=== PATIENT | female | born 1985 | race Caucasian/White ===

== ENCOUNTER 2019-10-05 15:39 | Emergency (ER) | payer OTHER ==
[~2019-10-05] VITALS: Ht 165.1 cm; Wt 90.7 kg
[2019-10-05 15:59] VITALS: BP 130/84
--- NOTE | 2019-10-05 16:07 | NUR ---
C/O DRY COUGH/ LOSS OF TASTE/ LOSS OF SMELL X5 DAYS, PT STATES SHE WAS EXPOSED TO COVID 2 WEEKS AGO BY A CO WORKER. DENIES ANY SOB/ CHEST PAIN/ FEVER. NO DISTRESS NOTED AT THIS TIME. VSS. RESP EVEN AND UNLABORED. DENIES ANY N/V/D NO PMH NKA
[2019-10-05 16:41] VITALS: BP 130/84
--- NOTE | 2019-10-05 16:41 | NUR ---
Patient discharged with v/s stable. Written and verbal after care instructions given and explained. Patient verbalized understanding. Ambulatory with steady gait. All questions addressed prior to discharge. Advised to follow up with PMD.
--- NOTE | 2019-10-07 13:19 | NUR ---
Covid results received from lab. Results = NOT DETECTED. Hard copy requested from lab and placed in infection controls mailbox.
== END 2019-10-05 16:41 | disposition home or self-care (01) ==
LOC: MED 15:39
DX: R43.8 Other disturbances of smell and taste (principal); Z20.828 Contact with and (suspected) exposure to other viral communicable diseases; R05 Cough; R51 Headache
CPT/HCPCS: 99283; U0003

== ENCOUNTER 2020-08-14 17:16 | Emergency (ER) | payer OTHER ==
[~2020-08-14] VITALS: Ht 165.1 cm; Wt 95.3 kg
[2020-08-14 17:26] VITALS: BP 116/82
[2020-08-14] MEDS ORDERED: ONDANSETRON 4 MG/2 ML VIAL IVP ONE (17:30)
[2020-08-14] MEDS ORDERED: ACETAMINOPHEN EXTRA STRENGTH 500 MG TAB PO ONE (17:30)
[2020-08-14] MEDS ORDERED: NACL 0.9% 1,000 ML IV ONE (17:30)
--- NOTE | 2020-08-14 17:50 | NUR ---
LAB DRAWING BLOOD AT THIS TIME.
--- NOTE | 2020-08-14 17:56 | NUR ---
35 y/o female c/o nausea/vomiting today. Reports 6/10 sharp abdominal pain. denies any recent fever, cough, runny nose. no medications taken. no other members of household with same symptoms. abd soft non tender, lung sounds clear. pmh: kidney stones, gallbladder removal nka
--- NOTE | 2020-08-14 17:56 | NUR ---
PT W/C ASSISTED TO BED 08
[2020-08-14 18:02] LABS: BASOPHILS % (AUTO) 0.3 % (0.0-2.0); EOSINOPHILS # (AUTO) 0.1 K/uL (0-0.4); EOSINOPHILS % (AUTO) 0.7 % (0.0-4.0); HEMATOCRIT 39.3 % (36-48); HEMOGLOBIN 13.6 g/dL (12.0-16.0); LYMPHOCYTES # (AUTO) 1.5 K/uL (2.5-16.5); LYMPHOCYTES % (AUTO) 17.1 % (20.5-51.1); MEAN CORPUSCULAR HEMOGLOBIN 35 pg (27-31); MEAN CORPUSCULAR HGB CONC 35 g/dL (33-37); MEAN CORPUSCULAR VOLUME 100.4 fL (80-94); MONOCYTES # (AUTO) 0.5 K/uL (0.8-1.0); MONOCYTES % (AUTO) 5.9 % (1.7-9.3); NEUTROPHILS # (AUTO) 6.5 K/uL (1.8-7.7); PLATELET COUNT (AUTO) 312 K/uL (140-450); RED BLOOD CELL COUNT(AUTO) 3.92 MIL/uL (4.20-5.40); RED CELL DISTRIBUTION WIDTH 12.2 % (11.6-13.7); WHITE BLOOD COUNT (AUTO) 8.5 K/uL (4.8-10.8)
[2020-08-14 18:16] LABS: ALBUMIN 4.3 g/dL (3.4-5.0); ANION GAP 10.4 (8-16); CARBON DIOXIDE 27.5 mmol/L (21-32); CREATININE 0.7 mg/dL (0.6-1.3); POTASSIUM 3.9 mmol/L (3.5-5.1); TOTAL BILIRUBIN 0.3 mg/dL (0.0-1.0)
[2020-08-14 18:19] LABS: APPEARANCE,URINE CLEAR (CLEAR); BILIRUBIN,URINE NEGATIVE (NEGATIVE); BLOOD, URINE NEGATIVE (NEGATIVE); COLOR,URINE YELLOW (YELLOW); LEUKOCYTE ESTERASE ,URINE NEGATIVE (NEGATIVE); NITRITE, URINE NEGATIVE (NEGATIVE); UGLUCOSE NEGATIVE (NEGATIVE)
[2020-08-14] MEDS ORDERED: ONDA-24 SL (19:05)
[2020-08-14 19:17] VITALS: BP 116/82
== END 2020-08-14 19:18 | disposition home or self-care (01) ==
LOC: MED 17:16
DX: R11.2 Nausea with vomiting, unspecified (principal); Z79.899 Other long term (current) drug therapy
CPT/HCPCS: 36415; 80053; 81003; 81025; 84703; 85025; 96361; 96374; 99283; J2405; J7030

== ENCOUNTER 2020-08-22 18:14 | Emergency (ER) | payer OTHER ==
[~2020-08-22] VITALS: Ht 165.1 cm; Wt 95.3 kg
[~2020-08-22 18:14] MED LIST: ONDA-24 SL
[2020-08-22 18:41] VITALS: BP 139/93
--- NOTE | 2020-08-22 20:00 | NUR ---
C/O VAGINAL BLEDING, RIGHT LOWER BACK, RLQ ABD PAIN X TODAY. SEEN HERE FOR N/V 08/14/20. A7OX4. SKIN IS WNL. ABD IS TENDERNESS TO TOUCH ON BILAT LOWER QUADS. PT STATES, "THERES HEAVY BLACK COLOR DISCHARGE COMING OUT AND IT HAS A FOUL ODOR." PT DENIES ANY BLOOD CLOTS. DENIES ANY VAGINAL PAIN OR ITICHINESS. 07/20 PAIN AND DESCRIBES IT STABBING AND PRESSURE. PT ADMITS TO HAVING UNPROTECTED SEX WITH BF. +SEXAULLY ACTIVE. VSS. A&OX4. NKDA. PMH: MERARI KIDNEY STONES
--- NOTE | 2020-08-22 20:01 | NUR ---
PT ATTACHED TO GRAVE DIGGER. SIDE RAILS UP X2. BED LOCKED IN PLACE AND AT THE LOWEST POSITION.
--- NOTE | 2020-08-22 20:24 | NUR ---
HANYD EMORYO AT BEDSIDE EVALUATING PT.
--- NOTE | 2020-08-22 20:40 | NUR ---
PELVIC EXAM SET UP AT BEDSIDE.
--- NOTE | 2020-08-22 21:20 | NUR ---
VAGINAL CULTURE COLLECTED AND SENT TO LAB.
[2020-08-22] MEDS ORDERED: cefTRIAXone 2,000 MG in DEXTROSE 5% 100 ML IV ONE (21:25)
[2020-08-22] MEDS ORDERED: cefTRIAXone 2,000 MG VIAL ONE (21:32)
[2020-08-22 21:36] LABS: BASOPHILS % (AUTO) 0.5 % (0.0-2.0); EOSINOPHILS # (AUTO) 0.1 K/uL (0-0.4); EOSINOPHILS % (AUTO) 1.2 % (0.0-4.0); HEMATOCRIT 37.6 % (36-48); HEMOGLOBIN 12.8 g/dL (12.0-16.0); LYMPHOCYTES # (AUTO) 3.6 K/uL (2.5-16.5); LYMPHOCYTES % (AUTO) 41.5 % (20.5-51.1); MEAN CORPUSCULAR HEMOGLOBIN 35 pg (27-31); MEAN CORPUSCULAR HGB CONC 34 g/dL (33-37); MEAN CORPUSCULAR VOLUME 101.2 fL (80-94); MONOCYTES # (AUTO) 0.5 K/uL (0.8-1.0); MONOCYTES % (AUTO) 6.1 % (1.7-9.3); NEUTROPHILS # (AUTO) 4.4 K/uL (1.8-7.7); NEUTROPHILS % (AUTO) 50.7 % (42.2-75.2); PLATELET COUNT (AUTO) 300 K/uL (140-450); RED BLOOD CELL COUNT(AUTO) 3.72 MIL/uL (4.20-5.40); RED CELL DISTRIBUTION WIDTH 12.6 % (11.6-13.7); WHITE BLOOD COUNT (AUTO) 8.6 K/uL (4.8-10.8)
[2020-08-22 21:52] LABS: ALBUMIN 4.1 g/dL (3.4-5.0); ANION GAP 11.6 (8-16); CARBON DIOXIDE 27.4 mmol/L (21-32); CREATININE 0.7 mg/dL (0.6-1.3); TOTAL BILIRUBIN 0.2 mg/dL (0.0-1.0)
[2020-08-22] MEDS ORDERED: DOXY-487 PO (22:24)
[2020-08-22] MEDS ORDERED: DOXY50CA5 PO (22:25)
[2020-08-22] MEDS ORDERED: DOXY100C9 PO (22:29)
[2020-08-22] MEDS ORDERED: METR500T1 PO (22:29)
[2020-08-22] MEDS ORDERED: FLUC150T PO (22:30)
[2020-08-22 22:45] VITALS: BP 98/59
--- NOTE | 2020-08-22 22:45 | NUR ---
Patient discharged with v/s stable. Written and verbal after care instructions given and explained. Patient alert, oriented and verbalized understanding of instructions. Ambulatory with steady gait. All questions addressed prior to discharge. ID band removed. Patient advised to follow up with PMD. Rx of DOXCYCLINE, FLAGYL, DIFULCAN given. Patient educated on indication of medication including possible reaction and side effects. Opportunity to ask questions provided and answered.
--- NOTE | 2020-08-22 22:45 | NUR ---
ERMD MADE AWARE OF PTS VS PRIOR TO S/C. OKAY TO D/C PT PER MD.
--- NOTE | 2020-08-24 05:45 | NUR ---
LATE ENTRY- ROCEPHIN IVPB DISCONTINUED AT 2210
== END 2020-08-22 22:45 | disposition home or self-care (01) ==
LOC: MED 18:14
DX: N76.0 Acute vaginitis (principal); F12.90 Cannabis use, unspecified, uncomplicated; Z97.5 Presence of (intrauterine) contraceptive device; Z79.899 Other long term (current) drug therapy; Z87.442 Personal history of urinary calculi; Z98.890 Other specified postprocedural states
CPT/HCPCS: 36415; 80053; 81002; 81025; 83605; 85025; 87070; 96365; 99284; J0696; 87075

== ENCOUNTER 2020-10-19 08:30 | Emergency (ER) | payer OTHER ==
[~2020-10-19] VITALS: Ht 162.6 cm; Wt 102.3 kg
[~2020-10-19 08:30] MED LIST changes: +FLUC150T PO; +METR500T1 PO; +VIB100 PO
[2020-10-19 08:49] VITALS: BP 138/105
--- NOTE | 2020-10-19 09:17 | NUR ---
PT AMBULATED TO BED 8
[2020-10-19] MEDS ORDERED: KETOROLAC 60 MG/2 ML VIAL IM ONE (09:25)
[2020-10-19] MEDS ORDERED: ACET-8386 PO (09:31)
[2020-10-19] MEDS ORDERED: OMEP40EC24 PO (09:31)
[2020-10-19] MEDS ORDERED: IBUP-2213 PO (09:31)
--- NOTE | 2020-10-19 09:47 | NUR ---
35/F presents to ED with c/o left flank pain x1 week. Patient states she has been having worsening intermittent left flank pain, stating 8/10 sharp pain. Reports taking motrin with no relief, states pain is nonradiating and worsening today. Denies N/V/D, dysuria, hematuria, fever, chills, chest pain or sob.
[2020-10-19] MEDS ORDERED: DICYCLOMINE HCL LIQUID 20 MG, ALUMINUM HYD/MAG/SIMETHICONE 30 ML, LIDOCAINE VISCOUS 2% ... PO ONE ×3 (10:05)
[2020-10-19] MEDS ORDERED: DICYCLOMINE HCL LIQUID 10 MG/5 ML UDC ONE (10:08)
[2020-10-19] MEDS ORDERED: ALUMINUM HYD/MAG/SIMETHICONE 30 ML UDC ONE (10:08)
[2020-10-19 10:47] VITALS: BP 138/105
--- NOTE | 2020-10-19 10:48 | NUR ---
Patient discharged with v/s stable. Written and verbal after care instructions given and explained. Patient alert, oriented and verbalized understanding of instructions. Ambulatory with steady gait. All questions addressed prior to discharge. ID band removed. Patient advised to follow up with PMD. Rx of IBUPROFEN, NORCO 5-325 AND PRILOSEC given. Patient educated on indication of medication including possible reaction and side effects. EDUCATED ON USE OF NARCOTICS AND TO AVOID DRINKING/DRIVING WHILE USING. Opportunity to ask questions provided and answered.
== END 2020-10-19 10:48 | disposition home or self-care (01) ==
LOC: MED 08:30
DX: R10.32 Left lower quadrant pain (principal)
CPT/HCPCS: 81002; 81025; 96372; 99283; J1885

== ENCOUNTER 2020-10-22 07:16 | Emergency (ER) | payer OTHER ==
[~2020-10-22] VITALS: Ht 162.6 cm; Wt 102.1 kg
[~2020-10-22 07:16] MED LIST changes: +ACET-8386 PO; -FLUC150T PO; +IBUP-2213 PO; -METR500T1 PO; +OMEP40EC24 PO; -ONDA-24 SL; -VIB100 PO
[2020-10-22 07:30] VITALS: BP 135/77
[2020-10-22] MEDS ORDERED: ONDANSETRON 4 MG ODT PO ONE (07:30)
[2020-10-22] MEDS ORDERED: HYDROcodone/APAP 5/325 MG 1 TAB TAB PO ONE ×2 (07:30→09:30)
--- NOTE | 2020-10-22 07:35 | NUR ---
PT PLACED BACK INTO LOBBY POST TRIAGE
--- NOTE | 2020-10-22 07:43 | NUR ---
URINE COLLECTED AND PLACED IN TRIAGE BIN NEAR SINK.
--- NOTE | 2020-10-22 07:43 | NUR ---
35 Y/O F BIB SELF FROM HOME, PT STATES SHE WOKE UP THIS MORNING IN WORSENING PAIN IN HER ABD LLQ, DOES NOT RADIATE. ALSO C/O N&V THIS MORNING. STATES SHE WAS SEEN HERE IN ER ON FRIDAY, NO BLOOD WORK OR TESTING, WAS TOLD "I JUST HAVE KIDNEY STONES". PAIN HAS INCREASED SINCE S/S ON FRIDAY. SKIN IS PINK/WARM/DRY; AAOX4 WITH EVEN AND STEADY GAIT; LUNGS CLEAR BL; HR EVEN AND REGULAR; PT DENIES ANY FEVER, CP, SOB, OR COUGH AT THIS TIME; PATIENT STATES PAIN OF 9/10 AT THIS TIME; VSS; PATIENT POSITIONED FOR COMFORT; HOB ELEVATED; BEDRAILS UP X2; BED DOWN. ER MD MADE AWARE OF PT STATUS. PMH: KIDNEY STONES, KIDNEY INFECTION NKA MED: IBUPROFEN 600MG
--- NOTE | 2020-10-22 08:08 | NUR ---
LABS COLLECTED, TOOK BLOOD AND URINE TO [facility]SAF IN LAB.
--- NOTE | 2020-10-22 08:08 | NUR ---
Patient taken for CT scan via wheelchair
[2020-10-22 08:15] LABS: BASOPHILS % (AUTO) 0.5 % (0.0-2.0); EOSINOPHILS # (AUTO) 0.1 K/uL (0-0.4); EOSINOPHILS % (AUTO) 2.2 % (0.0-4.0); HEMATOCRIT 40.4 % (36-48); HEMOGLOBIN 13.7 g/dL (12.0-16.0); LYMPHOCYTES # (AUTO) 2.2 K/uL (2.5-16.5); LYMPHOCYTES % (AUTO) 32.1 % (20.5-51.1); MEAN CORPUSCULAR HEMOGLOBIN 34 pg (27-31); MEAN CORPUSCULAR HGB CONC 34 g/dL (33-37); MONOCYTES # (AUTO) 0.6 K/uL (0.8-1.0); MONOCYTES % (AUTO) 9.3 % (1.7-9.3); NEUTROPHILS # (AUTO) 3.7 K/uL (1.8-7.7); NEUTROPHILS % (AUTO) 55.9 % (42.2-75.2); PLATELET COUNT (AUTO) 303 K/uL (140-450); WHITE BLOOD COUNT (AUTO) 6.7 K/uL (4.8-10.8)
[2020-10-22 08:19] LABS: BILIRUBIN,URINE NEGATIVE (NEGATIVE); BLOOD, URINE 1+ (NEGATIVE); COLOR,URINE YELLOW (YELLOW); LEUKOCYTE ESTERASE ,URINE NEGATIVE (NEGATIVE); NITRITE, URINE NEGATIVE (NEGATIVE); UGLUCOSE NEGATIVE (NEGATIVE)
[2020-10-22 08:23] LABS: APPEARANCE,URINE SLIGHTLY HAZY (CLEAR)
[2020-10-22 08:27] LABS: ALBUMIN 3.8 g/dL (3.4-5.0); ANION GAP 11.6 (8-16); CARBON DIOXIDE 27.8 mmol/L (21-32); CREATININE 0.7 mg/dL (0.6-1.3); POTASSIUM 4.4 mmol/L (3.5-5.1); TOTAL BILIRUBIN 0.3 mg/dL (0.0-1.0)
[2020-10-22 08:30] LABS: RBC,URINE 0-5 /HPF (0-5); WBC,URINE 0-5 /HPF (0-5)
[2020-10-22] MEDS ORDERED: AMOX-1000 PO (09:43)
[2020-10-22] MEDS ORDERED: IBUP-2213 PO (09:43)
[2020-10-22] MEDS ORDERED: ONDA-24 PO (09:43)
[2020-10-22] MEDS ORDERED: ACET-8386 PO (09:43)
[2020-10-22 09:51] VITALS: BP 135/77
--- NOTE | 2020-10-22 09:51 | NUR ---
Patient discharged with v/s stable. Written and verbal after care instructions given and explained. Patient alert, oriented and verbalized understanding of instructions. Ambulatory with steady gait. All questions addressed prior to discharge. ID band removed. Patient advised to follow up with PMD. Rx of AUGEMTIN, HYDROCODONE,ZOFRAN, MOTRIN given. Patient educated on indication of medication including possible reaction and side effects. Opportunity to ask questions provided and answered.
== END 2020-10-22 09:51 | disposition home or self-care (01) ==
LOC: MED 07:16
DX: K57.92 Diverticulitis of intestine, part unspecified, without perforation or abscess without bleeding (principal); Z87.442 Personal history of urinary calculi
CPT/HCPCS: 36415; 74176; 80053; 81001; 81025; 83690; 85025; 99284; Q0162

== ENCOUNTER 2020-10-28 15:01 | Emergency (ER) | payer OTHER ==
[~2020-10-28] VITALS: Ht 162.6 cm; Wt 99.8 kg
[~2020-10-28 15:01] MED LIST changes: +AMOX-1000 PO; +ONDA-24 PO
[2020-10-28 15:06] VITALS: BP 143/89
--- NOTE | 2020-10-28 15:11 | NUR ---
Pt ambulated to bed 04 with assistance from .
--- NOTE | 2020-10-28 15:14 | NUR ---
35 Y/O FEMALE C/O EPIGASTRIC PAIN 11/19 DESCRIBES SHARP NON-RADIATING. PT STATES SHE WAS SEEN A FEW DAYS AGO HERE IN ER FOR SIMILAR SYMPTOMS PRESCRIBED ABX, NORCO, AND MOTRIN WITH NO RELIEF. PT STATES +N/V/D X TODAY. DENIES FEVER/CHILLS. ABDOMEN IS SOFT, ROUND, TENDER TO PALPATION IN EPIGASTRIC AREA. BOWEL SOUNDS ACTIVE X4, LAST BM 10/28/20. PMH: DIVERTICULITIS NKA
--- NOTE | 2020-10-28 15:16 | NUR ---
DR. ALMANZA AT PT BEDSIDE FOR FURTHER EVALUATION.
[2020-10-28] MEDS ORDERED: ALUMINUM HYD/MAG/SIMETHICONE 30 ML UDC PO STA (15:18)
[2020-10-28] MEDS ORDERED: SUCRALFATE 1 GM TAB PO STA (15:18)
--- NOTE | 2020-10-28 15:26 | NUR ---
PT TAKEN TO XR VIA W/C.
--- NOTE | 2020-10-28 15:28 | NUR ---
IV ESTABLISHED TO RIGHT AC 20G, GOOD BLOOD RETURN, BLOOD COLLECTED, WALKED TO LAB.
[2020-10-28] MEDS ORDERED: MORPHINE SULFATE 4 MG/ML SYR IM ONE (15:30)
[2020-10-28 15:38] LABS: BASOPHILS % (AUTO) 0.4 % (0.0-2.0); EOSINOPHILS # (AUTO) 0.1 K/uL (0-0.4); EOSINOPHILS % (AUTO) 1.2 % (0.0-4.0); HEMATOCRIT 38.7 % (36-48); HEMOGLOBIN 13.5 g/dL (12.0-16.0); LYMPHOCYTES # (AUTO) 3.3 K/uL (2.5-16.5); LYMPHOCYTES % (AUTO) 31.9 % (20.5-51.1); MEAN CORPUSCULAR HEMOGLOBIN 34 pg (27-31); MEAN CORPUSCULAR HGB CONC 35 g/dL (33-37); MEAN CORPUSCULAR VOLUME 98.7 fL (80-94); MONOCYTES # (AUTO) 0.9 K/uL (0.8-1.0); MONOCYTES % (AUTO) 8.6 % (1.7-9.3); NEUTROPHILS % (AUTO) 57.9 % (42.2-75.2); PLATELET COUNT (AUTO) 292 K/uL (140-450); RED BLOOD CELL COUNT(AUTO) 3.92 MIL/uL (4.20-5.40); RED CELL DISTRIBUTION WIDTH 12.4 % (11.6-13.7); WHITE BLOOD COUNT (AUTO) 10.3 K/uL (4.8-10.8)
--- NOTE | 2020-10-28 15:39 | NUR ---
PT HAD AN EMESIS EPISODE S/P PO MEDS, EMESIS BAG PROVIDED, MADE AWARE. PT STATES PAIN 10/10 TO EPIGASTRIC AREA.
--- NOTE | 2020-10-28 15:50 | NUR ---
DR. ALMANZA AT PT BEDSIDE FOR RE-EVALUATION.
[2020-10-28] MEDS ORDERED: PANTOPRAZOLE 40 MG INJ VIAL ONE (15:52)
--- NOTE | 2020-10-28 15:52 | NUR ---
PT HAD AN EMESIS EPISODE, NEW EMESIS BAG PROVIDED, MADE AWARE.
[2020-10-28 15:54] LABS: ANION GAP 9.8 (8-16); CREATININE 0.7 mg/dL (0.6-1.3); POTASSIUM 3.8 mmol/L (3.5-5.1); TOTAL BILIRUBIN 0.4 mg/dL (0.0-1.0)
[2020-10-28] MEDS ORDERED: PANTOPRAZOLE 40 MG INJ VIAL IVP ONE (15:55)
--- NOTE | 2020-10-28 16:12 | NUR ---
PT HAD AN EMESIS EPISODE, NEW EMESIS BAG PROVIDED, MADE AWARE.
[2020-10-28] MEDS ORDERED: ONDANSETRON 4 MG/2 ML VIAL ONE (16:19)
[2020-10-28] MEDS ORDERED: ONDANSETRON 4 MG/2 ML VIAL IVP ONE (16:20)
--- NOTE | 2020-10-28 16:23 | NUR ---
PT SENT TO CT VIA W/C WITH [employer] AAOX4 AT THIS TIME.
--- NOTE | 2020-10-28 16:31 | NUR ---
PT TAKEN TO ER BED 4 VIA SHANAERKENZIE.
[2020-10-28] MEDS ORDERED: MORPHINE SULFATE 4 MG/ML SYR IVP ONE (17:00)
--- NOTE | 2020-10-28 17:01 | NUR ---
PT SITTING UP HOB ELEVATED, VSS, WILL CONTINUE TO MONITOR.
[2020-10-28] MEDS ORDERED: HALOPERIDOL IM 5 MG/ML VIAL IVP ONE (17:30)
[2020-10-28] MEDS ORDERED: NACL 0.9% 1,000 ML IV ONE (17:30)
--- NOTE | 2020-10-28 17:57 | NUR ---
PT RESTING COMFORTABLY, VISIBLE EQUAL RISE AND FALL OF CHEST, VSS, WILL CONTINUE TO MONITOR.
--- NOTE | 2020-10-28 18:29 | NUR ---
DR. ALMANZA AT PT BEDSIDE FOR REEVALUATION.
[2020-10-28] MEDS ORDERED: ONDA-24 SL (18:33)
[2020-10-28 18:39] VITALS: BP 134/71
--- NOTE | 2020-10-28 18:39 | NUR ---
Patient discharged with v/s stable. Written and verbal after care instructions given ABDOMINAL PAIN AND CYCLIC VOMITING SYNDROME and explained. Patient alert, oriented and verbalized understanding of instructions. Ambulatory with steady gait. All questions addressed prior to discharge. ID band removed. Patient advised to follow up with PMD. Rx of ZOFRAN 8MG PO Q8H PRN N/V given. Patient educated on indication of medication including possible reaction and side effects. Opportunity to ask questions provided and answered.
[2020-10-29] MEDS ORDERED: BEN50 PO (13:50)
== END 2020-10-28 18:39 | disposition home or self-care (01) ==
LOC: MED 15:01
DX: R11.15 Cyclical vomiting syndrome unrelated to migraine (principal); R10.13 Epigastric pain; R19.7 Diarrhea, unspecified; Z90.49 Acquired absence of other specified parts of digestive tract
CPT/HCPCS: 36415; 74018; 74176; 80053; 81002; 81025; 83690; 84703; 85025; 96361; 96372; 96374; 96375; 99285; C9113; J1630; J2270; J2405; J7030

== ENCOUNTER 2020-10-29 12:35 | Emergency (ER) | payer OTHER ==
[~2020-10-29] VITALS: Ht 162.6 cm; Wt 99.8 kg
[~2020-10-29 12:35] MED LIST changes: +ONDA-24 SL
[2020-10-29 12:56] VITALS: BP 142/66
--- NOTE | 2020-10-29 13:02 | NUR ---
PT AMBULATED TO ER BED 2.
--- NOTE | 2020-10-29 13:06 | NUR ---
35 Y/O FEMALE C/O SHAKINESS X1DAY. PT STATES SHE WAS SEEN HERE FOR EPIGASTRIC PAIN 11/19 YESTERDAY PRESCRIBED RX. PT STATES "I AM HAVING A REACTION TO HALDOL I CAN'T STOP SHAKINESS". DENIES FEVER/CHILLS. ABDOMEN IS SOFT, ROUND, TENDER TO PALPATION IN EPIGASTRIC AREA. BOWEL SOUNDS ACTIVE X4, LAST BM 10/28/20. PMH: DIVERTICULITIS NKA
--- NOTE | 2020-10-29 13:22 | NUR ---
DR. ALVES AT PT BEDSIDE FOR FURTHER EVALUATION.
[2020-10-29] MEDS ORDERED: diphenhydrAMINE 50 MG/ML VIAL IM ONE (13:25)
[2020-10-29] MEDS ORDERED: BEN50 PO (13:50)
--- NOTE | 2020-10-29 14:28 | NUR ---
Patient discharged with v/s stable. Written and verbal after care instructions given DYSPHOR[place] and explained. Patient alert, oriented and verbalized understanding of instructions. Ambulatory with steady gait. All questions addressed prior to discharge. ID band removed. Patient advised to follow up with PMD. Rx of BENADRYL given. Patient educated on indication of medication including possible reaction and side effects. Opportunity to ask questions provided and answered.
[2020-10-29 14:30] VITALS: BP 131/73
== END 2020-10-29 14:28 | disposition home or self-care (01) ==
LOC: MED 12:35
DX: G25.71 Drug induced akathisia (principal); T43.4X5A Adverse effect of butyrophenone and thiothixene neuroleptics, initial encounter; F12.90 Cannabis use, unspecified, uncomplicated; Z98.890 Other specified postprocedural states; Z79.899 Other long term (current) drug therapy; Z87.442 Personal history of urinary calculi; Y92.89 Other specified places as the place of occurrence of the external cause
CPT/HCPCS: 96372; 99283; J1200